=== PATIENT | male | born 1945 | race Caucasian/White ===

== ENCOUNTER 2017-04-26 19:36 | Inpatient (IN) | payer MEDICARE ==
[~2017-04-26] VITALS: Ht 167.6 cm; Wt 74.8 kg
[~2017-04-26 19:36] MED LIST: ALBU6.7H INH; ALBU90AE INH; AMLO5TAB2 PO; ASPI-496 PO; ASPI325T4 PO; ASPI325T80 PO; CARB200C PO; CARV6.2512 PO; CHOL20002 PO; CITA10TA4 PO; CYAN500T2 PO; DIVA125T2 PO; DIVA500T17 PO; DORZOLAMIDE HCL 2% OP; GABA-826 PO; GABA300C10 PO; HYDR-3138 PO; HYDR25TA6 PO; IPRA15SP2 INH; Ipratropium Bromide INH; KETOTIFEN OP; LATA2.5D3 EACHEYE; LATANOPROST; LEVE500T8 PO; MAGN420T PO; MECL-76 PO; MIRT15TA4 PO; OMEP-110 PO; OMEP20CA14 PO; ROSU10TA PO; ROSU20TA PO; TIMO5SOL6 OP; TIOT18CA INH; TRAZ100T15 PO; [UNRECOGNIZED DRUG - OTHER]; lidocaine
[2017-04-26] MEDS ORDERED: SODIUM CHLORIDE FLUSH 10ML SYR IVF ONE (20:00)
[2017-04-26 20:41] LABS: IS PT STATUS REG ER OR PRE ER? YES
[2017-04-26] MEDS ORDERED: ASPIRIN 81 MG TABLET CHEW PO ONE (21:00)
[2017-04-26] MEDS ORDERED: ASPIRIN 81 MG TABLET CHEW ONE (21:14)
[2017-04-26] MEDS ORDERED: NITROGLYCERIN SINGLE TAB 0.4 MG SL PRN (21:30)
[2017-04-26] MEDS ORDERED: HYDROmorphone 2 MG/ML, 1ML IVPush PRN (21:30)
[2017-04-26] MEDS ORDERED: HYDROmorphone 1 MG/ML, 1ML ONE (22:18)
[2017-04-26] MEDS ORDERED: NITROGLYCERIN 0.4 MG/SPRAY SL PRN (23:30)
[2017-04-26] MEDS: NITROGLYCERIN 0.4 MG BOTTLE (25 TABS) SL PRN ×2 (23:42→23:48)
[2017-04-26] MEDS ORDERED: LORazepam 2 MG/ML, 1ML ONE (23:53)
[2017-04-26] MEDS ORDERED: DIPHENHYDRAMINE 50 MG/ML, 1ML ONE (23:57)
[2017-04-27] MEDS ORDERED: LABETALOL 5MG/ML, 20ML ONE (00:05)
[2017-04-27] MEDS ORDERED: LABETALOL 5MG/ML, 20ML IVPush ONE (00:30)
[2017-04-27 00:40] LABS: ASPARTATE AMINO TRANSFERASE 23 U/L (15-37); BLOOD UREA NITROGEN 21 mg/dL (7-18)
[2017-04-27 00:44] LABS: IS PT STATUS REG ER OR PRE ER? NO
[2017-04-27] MEDS ORDERED: POLYETHYLENE GLYCOL 17 GM PACKET PO PRN (01:00)
[2017-04-27] MEDS ORDERED: LABETALOL 5MG/ML, 20ML IVPush PRN (01:00)
[2017-04-27] MEDS ORDERED: ONDANSETRON 2MG/ML, 2ML IVPush PRN (01:00)
[2017-04-27 01:26] VITALS: BP 160/78
[2017-04-27] MEDS: DIVALPROEX 500 MG TAB.ER.24H PO SCH ×2 (01:27→21:21)
[2017-04-27] MEDS: TRAZODONE 100MG TABLET PO SCH ×2 (01:27→21:22)
[2017-04-27] MEDS: HYDROmorphone 2 MG/ML, 1ML IVPush PRN ×3 (01:28→03:17)
[2017-04-27] MEDS ORDERED: ALBUTEROL SULFATE 2.5 MG/3 ML NPPB PRN (03:30)
[2017-04-27] MEDS: LORazepam 2 MG/ML, 1ML IVPush PRN ×2 (04:30→04:38)
[2017-04-27] MEDS ORDERED: ASPIRIN 325 MG TABLET PO SCH (06:00)
[2017-04-27 06:21] VITALS: BP 111/67
[2017-04-27] MEDS ORDERED: ALBUTEROL/IPRATROPIUM 2.5MG/0.5MG, 3 ML ONE (06:42)
[2017-04-27 07:20] LABS: IS PT STATUS REG ER OR PRE ER? NO
[2017-04-27] MEDS: ALBUTEROL SULFATE 2.5 MG/3 ML NPPB SCH ×4 (07:25→18:52)
[2017-04-27 07:47] VITALS: BP 137/70
[2017-04-27] MEDS: CARVEDILOL 6.25 MG TABLET PO SCH ×2 (08:44→21:21)
[2017-04-27] MEDS: MAGNESIUM OXIDE 400 MG TABLET PO SCH (08:45)
[2017-04-27] MEDS: CITALOPRAM 10 MG TABLET PO SCH (08:45)
[2017-04-27] MEDS: OMEPRAZOLE 20 MG CAPSULE.DR PO SCH (08:45)
[2017-04-27] MEDS: CARBAMAZEPINE 200 MG TABLET PO SCH ×2 (08:45→21:24)
[2017-04-27] MEDS: GABAPENTIN 300 MG CAPSULE PO SCH ×2 (08:45→21:23)
[2017-04-27] MEDS: CYANOCOBALAMIN 1,000 MCG TABLET PO SCH (08:45)
[2017-04-27] MEDS: LEVETIRACETAM 500 MG TABLET PO SCH ×2 (08:45→21:22)
[2017-04-27] MEDS: AMLODIPINE 5 MG TABLET PO SCH (08:45)
[2017-04-27] MEDS: CHOLECALCIFEROL 1,000 UNIT TABLET PO SCH (08:45)
[2017-04-27] MEDS ORDERED: IPRATROPIUM 0.5 MG/2.5 ML INHA NPPB SCH (09:00)
[2017-04-27] MEDS: KETOROLAC OPHTH 0.5%, 5ML EACHEYE SCH ×2 (10:14→21:17)
[2017-04-27] MEDS: TIMOLOL OPHTH 0.5%, 5ML EACHEYE SCH ×2 (10:14→21:18)
[2017-04-27] MEDS ORDERED: SODIUM CHLORIDE 0.9% 1,000 ML IV SCH (11:00)
[2017-04-27] MEDS: DORZOLAMIDE OPHTH 2%, 10ML OP SCH ×2 (11:14→21:00)
[2017-04-27] MEDS: SODIUM CHLORIDE 0.9% 1,000 ML IV SCH ×4 (11:24→23:39)
[2017-04-27] MEDS ORDERED: MIDAZOLAM 1 MG/ML, 5ML ONE (13:25)
[2017-04-27] MEDS ORDERED: LIDOCAINE 2%, 20ML ONE (13:26)
[2017-04-27] MEDS ORDERED: HEPARIN 1,000 UNITS/ML, 10ML ONE (13:26)
[2017-04-27] MEDS ORDERED: FENTANYL PF 100 MCG/2ML ONE (13:26)
[2017-04-27] MEDS ORDERED: VERAPAMIL 2.5 MG/ML, 2ML ONE (13:26)
[2017-04-27] MEDS ORDERED: BIVALIRUDIN 250 MG ONE (13:26)
[2017-04-27 13:35] VITALS: BP 114/68
[2017-04-27 19:57] VITALS: BP 107/68
[2017-04-27] MEDS ORDERED: LATANOPROST OPHTH 0.005%, 2.5ML EACHEYE SCH (21:00)
[2017-04-27] MEDS ORDERED: ATORVASTATIN 20 MG TABLET PO SCH (21:00)
[2017-04-27] MEDS ORDERED: MIRTAZAPINE 15 MG TABLET PO SCH (21:00)
[2017-04-27 21:17] VITALS: BP 138/73
[2017-04-28] MEDS: SODIUM CHLORIDE 0.9% 1,000 ML IV SCH (00:20)
[2017-04-28 01:24] VITALS: BP 129/65
[2017-04-28] MEDS ORDERED: ASPIRIN 81 MG TABLET CHEW PO SCH (06:00)
[2017-04-28] MEDS: HYDROmorphone 2 MG/ML, 1ML IVPush PRN (06:02)
[2017-04-28 06:43] LABS: BLOOD UREA NITROGEN 22 mg/dL (7-18)
[2017-04-28 06:49] VITALS: BP 129/70
[2017-04-28] MEDS: ALBUTEROL SULFATE 2.5 MG/3 ML NPPB SCH ×2 (07:05→10:30)
[2017-04-28] MEDS: KETOROLAC OPHTH 0.5%, 5ML EACHEYE SCH (08:15)
[2017-04-28] MEDS: CITALOPRAM 10 MG TABLET PO SCH (08:16)
[2017-04-28] MEDS: GABAPENTIN 300 MG CAPSULE PO SCH (08:16)
[2017-04-28] MEDS: LEVETIRACETAM 500 MG TABLET PO SCH (08:16)
[2017-04-28] MEDS: TIMOLOL OPHTH 0.5%, 5ML EACHEYE SCH (08:16)
[2017-04-28] MEDS: CHOLECALCIFEROL 1,000 UNIT TABLET PO SCH (08:16)
[2017-04-28] MEDS: OMEPRAZOLE 20 MG CAPSULE.DR PO SCH (08:16)
[2017-04-28] MEDS: CYANOCOBALAMIN 1,000 MCG TABLET PO SCH (08:16)
[2017-04-28] MEDS: CARBAMAZEPINE 200 MG TABLET PO SCH (08:16)
[2017-04-28] MEDS: MAGNESIUM OXIDE 400 MG TABLET PO SCH (08:16)
[2017-04-28] MEDS: DORZOLAMIDE OPHTH 2%, 10ML OP SCH (08:17)
[2017-04-28] MEDS: CARVEDILOL 6.25 MG TABLET PO SCH (08:17)
[2017-04-28] MEDS: AMLODIPINE 5 MG TABLET PO SCH (08:18)
[2017-04-28 12:28] LABS: IS PT STATUS REG ER OR PRE ER? NO
== END 2017-04-28 11:50 | disposition home or self-care (01) | DRG 280 ==
LOC: ED 20:23 → EDIP 21:37 → 5SO 22:30 → DCLOUNGE 04-28 10:43
PROVIDERS: ADMIT Internal Medicine; ATTEND Internal Medicine
PROC: 4A023N7 Measurement of Cardiac Sampling and Pressure, Left Heart, Percutaneous Approach (ICD-10-PCS; principal; 2017-04-27)
PROC: B2111ZZ Fluoroscopy of Multiple Coronary Arteries using Low Osmolar Contrast (ICD-10-PCS; 2017-04-27)
PROC: B2151ZZ Fluoroscopy of Left Heart using Low Osmolar Contrast (ICD-10-PCS; 2017-04-27)
DX: I21.4 Non-ST elevation (NSTEMI) myocardial infarction (principal); N17.0 Acute kidney failure with tubular necrosis; F33.9 Major depressive disorder, recurrent, unspecified; E78.5 Hyperlipidemia, unspecified; F10.21 Alcohol dependence, in remission; F44.5 Conversion disorder with seizures or convulsions; G62.9 Polyneuropathy, unspecified; G93.89 Other specified disorders of brain; I13.10 Hypertensive heart and chronic kidney disease without heart failure, with stage 1 through stage 4 chronic kidney disease, or unspecified chronic kidney disease; I25.10 Atherosclerotic heart disease of native coronary artery without angina pectoris; I34.0 Nonrheumatic mitral (valve) insufficiency; I73.9 Peripheral vascular disease, unspecified; J44.9 Chronic obstructive pulmonary disease, unspecified; M10.9 Gout, unspecified; N18.3 Chronic kidney disease, stage 3 (moderate); F12.90 Cannabis use, unspecified, uncomplicated; H40.9 Unspecified glaucoma; F17.210 Nicotine dependence, cigarettes, uncomplicated; I25.2 Old myocardial infarction; Z82.49 Family history of ischemic heart disease and other diseases of the circulatory system; Z91.81 History of falling; Z88.4 Allergy status to anesthetic agent; Z88.8 Allergy status to other drugs, medicaments and biological substances; Z87.820 Personal history of traumatic brain injury
CPT/HCPCS: 36415; 70450; 71010; 80047; 80048; 80053; 80061; 80157; 82040; 82542; 82962; 83735; 83880; 84100; 84484; 85025; 85610; 85730; 93005; 93306; 93458; 94640; 95819; 96374; 99156; C1760; C1894; J0583; J1170; J1644; J2250; J3010; J3490; J7613; J2060; J7030; Q9967

== ENCOUNTER 2017-05-02 09:35 | Inpatient (IN) | payer MEDICARE, OTHER ==
[~2017-05-02] VITALS: Ht 167.6 cm; Wt 82.6 kg
[2017-05-02] MEDS ORDERED: MORPHINE SULFATE 4 MG/ML, 1ML IVPush PRN (10:00)
[2017-05-02] MEDS ORDERED: SODIUM CHLORIDE FLUSH 10ML SYR IVF ONE (10:00)
[2017-05-02] MEDS ORDERED: SODIUM CHLORIDE 0.9% 1,000ML IVBOLUS ONE (10:00)
[2017-05-02] MEDS ORDERED: CEFTRIAXONE PMX 1GM/50ML 50 ML IVPB ONE (10:00)
[2017-05-02] MEDS ORDERED: ACETAMINOPHEN 500 MG TABLET PO ONE (10:00)
[2017-05-02] MEDS ORDERED: ONDANSETRON 2MG/ML, 2ML IVPush ONE (10:00)
[2017-05-02] MEDS ORDERED: ACETAMINOPHEN 325 MG TABLET PO ONE (10:00)
[2017-05-02] MEDS ORDERED: CEFTRIAXONE PMX 2GM/50ML 50 ML IV STA (10:24)
[2017-05-02] MEDS ORDERED: LORazepam 2 MG/ML, 1ML ONE (10:29)
[2017-05-02] MEDS ORDERED: ACETAMINOPHEN 500 MG TABLET ONE (10:30)
[2017-05-02] MEDS ORDERED: LORazepam 2 MG/ML, 1ML IM PRN (10:30)
[2017-05-02 10:54] LABS: HEMATOCRIT 35.3 % (39.2-51.8); HEMOGLOBIN 11.4 g/dL (13.7-18.0)
[2017-05-02 11:06] LABS: ASPARTATE AMINO TRANSFERASE 10 U/L (15-37); BLOOD UREA NITROGEN 26 mg/dL (7-18)
[2017-05-02 11:08] LABS: IS PT STATUS REG ER OR PRE ER? YES
[2017-05-02] MEDS ORDERED: IBUPROFEN 200 MG TABLET ONE (11:38)
[2017-05-02] MEDS ORDERED: LIDOCAINE 1%, 20ML ONE (11:53)
[2017-05-02] MEDS ORDERED: IBUPROFEN 200 MG TABLET PO ONE (12:00)
[2017-05-02] MEDS ORDERED: CEFTRIAXONE PMX 2GM/50ML 50 ML ONE (14:20)
[2017-05-02 14:59] VITALS: BP 113/70
[2017-05-02] MEDS ORDERED: NALOXONE 0.4 MG/ML, 1ML ONE (15:15)
[2017-05-02] MEDS ORDERED: NALOXONE 0.4 MG/ML, 1ML IVPush ONE (15:30)
[2017-05-02] MEDS ORDERED: DOCUSATE 100 MG CAPSULE PO PRN (16:00)
[2017-05-02] MEDS ORDERED: CEFTRIAXONE PMX 1GM/50ML 50 ML IV SCH (16:00)
[2017-05-02] MEDS ORDERED: BISACODYL 10 MG SUPP PR PRN (16:00)
[2017-05-02] MEDS ORDERED: POLYETHYLENE GLYCOL 17 GM PACKET PO PRN (16:00)
[2017-05-02 16:59] LABS: TOTAL IRON BINDING CAPACITY 231 mcg/dL (250-450)
[2017-05-02] MEDS: SODIUM CHLORIDE 0.9% 1,000 ML IV SCH (17:01)
[2017-05-02] MEDS: DOXYCYCLINE 100 MG in DEXTROSE 5% 250 ML IV SCH (17:01)
[2017-05-02] MEDS: ENOXAPARIN 40 MG/0.4 ML SQ SCH (17:06)
[2017-05-02 17:07] LABS: IS PT STATUS REG ER OR PRE ER? NO
[2017-05-02] MEDS ORDERED: MAGNESIUM SULFATE PMX 4GM/100M 100 ML IV ONE (17:30)
[2017-05-02] MEDS ORDERED: POTASSIUM PHOSPHATE 44 MEQ in SODIUM CHLORIDE 0.9% 500 ML IV ONE (17:30)
[2017-05-02] MEDS ORDERED: ALBUTEROL SULFATE 2.5 MG/3 ML NPPB PRN (18:00)
[2017-05-02 19:15] VITALS: BP 143/75
[2017-05-02 22:17] LABS: IS PT STATUS REG ER OR PRE ER? NO
[2017-05-03 02:20] VITALS: BP 133/75
[2017-05-03] MEDS: DOXYCYCLINE 100 MG in DEXTROSE 5% 250 ML IV SCH (04:16)
[2017-05-03 06:49] LABS: ASPARTATE AMINO TRANSFERASE 8 U/L (15-37); BLOOD UREA NITROGEN 29 mg/dL (7-18)
[2017-05-03 07:09] LABS: HEMATOCRIT 30.5 % (39.2-51.8); HEMOGLOBIN 9.9 g/dL (13.7-18.0); WHITE BLOOD COUNT 12.7 x10^3/uL (3.4-10)
[2017-05-03 07:10] LABS: DIFF TOTAL CELLS COUNTED 100 CELL DIFF
[2017-05-03 07:11] LABS: VERIFY COUNTS? YES
[2017-05-03 07:12] LABS: POLYCHROMASIA 1+
[2017-05-03 08:32] VITALS: BP 159/83
[2017-05-03] MEDS: SODIUM CHLORIDE 0.9% 1,000 ML IV SCH (08:34)
[2017-05-03] MEDS: CARBAMAZEPINE 100 MG TAB.CHEW PO SCH ×2 (10:21→21:00)
[2017-05-03] MEDS: CITALOPRAM 10 MG TABLET PO SCH (10:21)
[2017-05-03] MEDS: GABAPENTIN 300 MG CAPSULE PO SCH ×2 (10:21→21:11)
[2017-05-03] MEDS: LEVETIRACETAM 500 MG TABLET PO SCH ×2 (10:22→21:11)
[2017-05-03] MEDS: CARVEDILOL 6.25 MG TABLET PO SCH ×2 (10:22→21:12)
[2017-05-03] MEDS: ASPIRIN 81 MG TABLET EC PO SCH (10:22)
[2017-05-03] MEDS: OMEPRAZOLE 20 MG CAPSULE.DR PO SCH (10:23)
[2017-05-03] MEDS: MAGNESIUM OXIDE 400 MG TABLET PO SCH (10:23)
[2017-05-03] MEDS: CYANOCOBALAMIN 1,000 MCG TABLET PO SCH (10:24)
[2017-05-03] MEDS: CHOLECALCIFEROL 1,000 UNIT TABLET PO SCH (10:24)
[2017-05-03] MEDS: TIOTROPIUM BROMIDE 2.5 MCG INH SCH (10:24)
[2017-05-03] MEDS: KETOTIFEN OP SCH ×2 (10:24→21:00)
[2017-05-03] MEDS: TIMOLOL OPHTH 0.5%, 5ML OP SCH (10:25)
[2017-05-03] MEDS: DORZOLAMIDE OPHTH 2%, 10ML OP SCH ×2 (10:25→21:10)
[2017-05-03] MEDS ORDERED: IPRATROPIUM BROMIDE 17 MCG INH SCH (11:00)
[2017-05-03 11:44] VITALS: BP 140/73
[2017-05-03] MEDS: HYDROcodone/APAP 5/325 TABLET PO PRN (11:44)
[2017-05-03 13:08] VITALS: BP 139/76
[2017-05-03] MEDS ORDERED: PHARMACY MAY ADJ FOR RENAL FX MC PRN (13:30)
[2017-05-03] MEDS ORDERED: PHARMACOKINETIC MONITORING MC PRN (13:30)
[2017-05-03] MEDS ORDERED: VANCOMYCIN PER PHARMACY MC PRN (13:30)
[2017-05-03] MEDS: PIPERACILLIN/TAZO/PMX 4.5GM 100 ML IV SCH ×2 (14:05→21:11)
[2017-05-03] MEDS: VANCOMYCIN 1,400 MG in SODIUM CHLORIDE 0.9% 250 ML IV SCH (14:57)
[2017-05-03] MEDS ORDERED: IPRATROPIUM 0.5 MG/2.5 ML INHA NPPB SCH (16:00)
[2017-05-03] MEDS: ENOXAPARIN 40 MG/0.4 ML SQ SCH (16:13)
[2017-05-03 19:26] VITALS: BP 140/69
[2017-05-03] MEDS: LATANOPROST OPHTH 0.005%, 2.5ML EACHEYE SCH (21:10)
[2017-05-03] MEDS: TRAZODONE 100MG TABLET PO SCH (21:11)
[2017-05-03] MEDS: DIVALPROEX 500 MG TAB.ER.24H PO SCH (21:11)
[2017-05-03] MEDS: MIRTAZAPINE 15 MG TABLET PO SCH (21:11)
[2017-05-03] MEDS: ATORVASTATIN 20 MG TABLET PO SCH (21:11)
[2017-05-04 01:12] VITALS: BP 130/63
[2017-05-04] MEDS: PIPERACILLIN/TAZO/PMX 4.5GM 100 ML IV SCH ×3 (05:14→16:10)
[2017-05-04 05:39] LABS: HEMATOCRIT 28.9 % (39.2-51.8); HEMOGLOBIN 9.5 g/dL (13.7-18.0); WHITE BLOOD COUNT 11.7 x10^3/uL (3.4-10)
[2017-05-04 05:58] LABS: ASPARTATE AMINO TRANSFERASE 6 U/L (15-37); BLOOD UREA NITROGEN 28 mg/dL (7-18)
[2017-05-04 07:28] VITALS: BP 129/60
[2017-05-04] MEDS: TIMOLOL OPHTH 0.5%, 5ML OP SCH (08:51)
[2017-05-04] MEDS: DORZOLAMIDE OPHTH 2%, 10ML OP SCH ×2 (08:52→20:11)
[2017-05-04] MEDS: CITALOPRAM 10 MG TABLET PO SCH (08:52)
[2017-05-04] MEDS: LEVETIRACETAM 500 MG TABLET PO SCH ×2 (08:53→20:12)
[2017-05-04] MEDS: CARVEDILOL 6.25 MG TABLET PO SCH ×2 (08:53→20:12)
[2017-05-04] MEDS: ASPIRIN 81 MG TABLET EC PO SCH (08:54)
[2017-05-04] MEDS: AMLODIPINE 5 MG TABLET PO SCH (08:55)
[2017-05-04] MEDS: GABAPENTIN 300 MG CAPSULE PO SCH ×2 (08:55→20:12)
[2017-05-04] MEDS: OMEPRAZOLE 20 MG CAPSULE.DR PO SCH (08:56)
[2017-05-04] MEDS: CHOLECALCIFEROL 1,000 UNIT TABLET PO SCH (08:58)
[2017-05-04] MEDS: MAGNESIUM OXIDE 400 MG TABLET PO SCH (08:58)
[2017-05-04] MEDS: CYANOCOBALAMIN 1,000 MCG TABLET PO SCH (08:59)
[2017-05-04] MEDS: TIOTROPIUM BROMIDE 2.5 MCG INH SCH (09:00)
[2017-05-04] MEDS: KETOTIFEN OP SCH ×2 (09:00→21:00)
[2017-05-04] MEDS: CARBAMAZEPINE 100 MG TAB.CHEW PO SCH ×2 (09:00→21:00)
[2017-05-04] MEDS: HYDROcodone/APAP 5/325 TABLET PO PRN (09:14)
[2017-05-04 13:56] VITALS: BP 143/85
[2017-05-04] MEDS: ENOXAPARIN 40 MG/0.4 ML SQ SCH (16:00)
[2017-05-04 19:54] VITALS: BP 129/72
[2017-05-04] MEDS: DIVALPROEX 500 MG TAB.ER.24H PO SCH (20:11)
[2017-05-04] MEDS: LATANOPROST OPHTH 0.005%, 2.5ML EACHEYE SCH (20:11)
[2017-05-04] MEDS: TRAZODONE 100MG TABLET PO SCH (20:12)
[2017-05-04] MEDS: ATORVASTATIN 20 MG TABLET PO SCH (20:12)
[2017-05-04] MEDS: MIRTAZAPINE 15 MG TABLET PO SCH (20:12)
[2017-05-04] MEDS: PIPERACILLIN/TAZO/PMX 3.375GM 50 ML IV SCH (22:37)
[2017-05-05 01:03] VITALS: BP 137/77
[2017-05-05] MEDS: VANCOMYCIN 1,400 MG in SODIUM CHLORIDE 0.9% 250 ML IV SCH (02:40)
[2017-05-05] MEDS: PIPERACILLIN/TAZO/PMX 3.375GM 50 ML IV SCH ×3 (04:46→16:00)
[2017-05-05 08:08] VITALS: BP 167/83
[2017-05-05] MEDS: LEVETIRACETAM 500 MG TABLET PO SCH (08:50)
[2017-05-05] MEDS: ASPIRIN 81 MG TABLET EC PO SCH (08:50)
[2017-05-05] MEDS: CARVEDILOL 6.25 MG TABLET PO SCH (08:50)
[2017-05-05] MEDS: MAGNESIUM OXIDE 400 MG TABLET PO SCH (08:50)
[2017-05-05] MEDS: AMLODIPINE 5 MG TABLET PO SCH (08:51)
[2017-05-05] MEDS: CYANOCOBALAMIN 1,000 MCG TABLET PO SCH (08:51)
[2017-05-05] MEDS: OMEPRAZOLE 20 MG CAPSULE.DR PO SCH (08:51)
[2017-05-05] MEDS: GABAPENTIN 300 MG CAPSULE PO SCH (08:51)
[2017-05-05] MEDS: DORZOLAMIDE OPHTH 2%, 10ML OP SCH (08:52)
[2017-05-05] MEDS: CITALOPRAM 10 MG TABLET PO SCH (08:52)
[2017-05-05] MEDS: CHOLECALCIFEROL 1,000 UNIT TABLET PO SCH (08:52)
[2017-05-05] MEDS: TIMOLOL OPHTH 0.5%, 5ML OP SCH (08:53)
[2017-05-05] MEDS: TIOTROPIUM BROMIDE 2.5 MCG INH SCH (09:00)
[2017-05-05] MEDS: CARBAMAZEPINE 100 MG TAB.CHEW PO SCH (09:00)
[2017-05-05] MEDS: KETOTIFEN OP SCH (09:00)
[2017-05-05 12:00] LABS: HEMOGLOBIN 10.4 g/dL (13.7-18.0); WHITE BLOOD COUNT 7.7 x10^3/uL (3.4-10)
[2017-05-05 12:02] LABS: BLOOD UREA NITROGEN 24 mg/dL (7-18)
[2017-05-05] MEDS ORDERED: CEFD300C37 PO (12:45)
[2017-05-05] MEDS ORDERED: METR500T PO (12:45)
[2017-05-05] MEDS: ENOXAPARIN 40 MG/0.4 ML SQ SCH (16:00)
== END 2017-05-05 15:40 | disposition home or self-care (01) | DRG 871 ==
LOC: ED 12:14 → EDIP 12:47 → 5SO 14:50 → 3NE 05-03 19:38 → DCLOUNGE 05-05 15:19
PROVIDERS: ADMIT Internal Medicine; ATTEND Internal Medicine
PROC: 02HV33Z Insertion of Infusion Device into Superior Vena Cava, Percutaneous Approach (ICD-10-PCS; principal; 2017-05-02)
PROC: B548ZZA Ultrasonography of Superior Vena Cava, Guidance (ICD-10-PCS; 2017-05-02)
DX: A41.9 Sepsis, unspecified organism (principal); E43 Unspecified severe protein-calorie malnutrition; I21.4 Non-ST elevation (NSTEMI) myocardial infarction; J18.1 Lobar pneumonia, unspecified organism; J15.9 Unspecified bacterial pneumonia; N18.3 Chronic kidney disease, stage 3 (moderate); G62.9 Polyneuropathy, unspecified; R56.9 Unspecified convulsions; J44.0 Chronic obstructive pulmonary disease with (acute) lower respiratory infection; D64.9 Anemia, unspecified; G40.909 Epilepsy, unspecified, not intractable, without status epilepticus; E78.5 Hyperlipidemia, unspecified; I12.9 Hypertensive chronic kidney disease with stage 1 through stage 4 chronic kidney disease, or unspecified chronic kidney disease; I25.10 Atherosclerotic heart disease of native coronary artery without angina pectoris; M10.9 Gout, unspecified; F32.9 Major depressive disorder, single episode, unspecified; R09.02 Hypoxemia; I69.30 Unspecified sequelae of cerebral infarction; Z82.49 Family history of ischemic heart disease and other diseases of the circulatory system; Z87.820 Personal history of traumatic brain injury; Z88.8 Allergy status to other drugs, medicaments and biological substances; Z79.82 Long term (current) use of aspirin; Z79.51 Long term (current) use of inhaled steroids; Z68.29 Body mass index [BMI] 29.0-29.9, adult; Z86.73 Personal history of transient ischemic attack (TIA), and cerebral infarction without residual deficits
CPT/HCPCS: 36415; 36569; 71010; 76937; 77001; 80048; 80053; 81003; 83540; 83550; 83605; 83735; 84100; 84145; 84443; 84484; 85025; 87040; 87070; 87205; 93005; 96361; 96365; 96372; J0696; J1650; J2310; J2543; J3370; J7060; C1751; J2060; J3475; J7030; J7040; J7050

== ENCOUNTER 2017-05-14 15:27 | Inpatient (IN) | payer MEDICARE, OTHER ==
[~2017-05-14] VITALS: Ht 177.8 cm; Wt 82.2 kg
[~2017-05-14 15:27] MED LIST changes: +CEFD300C37 PO; +METR500T PO
[2017-05-14] MEDS ORDERED: SODIUM CHLORIDE FLUSH 10ML SYR IVF ONE ×2 (16:00→19:00)
[2017-05-14 16:12] LABS: HEMATOCRIT 33.4 % (39.2-51.8); HEMOGLOBIN 10.8 g/dL (13.7-18.0); WHITE BLOOD COUNT 4.3 x10^3/uL (3.4-10)
[2017-05-14 16:25] LABS: ASPARTATE AMINO TRANSFERASE 12 U/L (15-37); BLOOD UREA NITROGEN 15 mg/dL (7-18)
[2017-05-14 16:29] LABS: IS PT STATUS REG ER OR PRE ER? YES; VALPROIC ACID 67.5 mcg/mL (50.0-100.0)
[2017-05-14] MEDS ORDERED: HYDROcodone/APAP 5/325 TABLET PO PRN (19:00)
[2017-05-14] MEDS ORDERED: ACETAMINOPHEN 325 MG TABLET PO PRN (19:00)
[2017-05-14] MEDS ORDERED: LABETALOL 5MG/ML, 20ML IVPush PRN (19:00)
[2017-05-14] MEDS ORDERED: ONDANSETRON ODT 4 MG PO PRN (19:00)
[2017-05-14] MEDS: CARBAMAZEPINE 100 MG TAB.CHEW PO SCH (20:48)
[2017-05-14] MEDS: LEVETIRACETAM 500 MG TABLET PO SCH (20:48)
[2017-05-14] MEDS: GABAPENTIN 300 MG CAPSULE PO SCH (20:48)
[2017-05-14] MEDS: OMEPRAZOLE 20 MG CAPSULE.DR PO SCH (20:48)
[2017-05-14] MEDS: CARVEDILOL 6.25 MG TABLET PO SCH (20:49)
[2017-05-14] MEDS: KETOTIFEN OP SCH (20:52)
[2017-05-14] MEDS: DORZOLAMIDE OPHTH 2%, 10ML OP SCH (20:53)
[2017-05-14 20:55] VITALS: BP 156/81
[2017-05-14] MEDS ORDERED: LORazepam 2 MG/ML, 1ML IVPush PRN (21:00)
[2017-05-14] MEDS ORDERED: LATANOPROST OPHTH 0.005%, 2.5ML EACHEYE SCH (21:00)
[2017-05-14] MEDS ORDERED: TRAZODONE 100MG TABLET PO SCH (21:00)
[2017-05-14] MEDS ORDERED: MIRTAZAPINE 15 MG TABLET PO SCH (21:00)
[2017-05-14] MEDS ORDERED: ATORVASTATIN 20 MG TABLET PO SCH (21:00)
[2017-05-14] MEDS ORDERED: DIVALPROEX 500 MG TAB.ER.24H PO SCH (21:00)
[2017-05-14 22:20] LABS: IS PT STATUS REG ER OR PRE ER? NO
[2017-05-14] MEDS ORDERED: ALBUTEROL/IPRATROPIUM 2.5MG/0.5MG, 3 ML NPPB PRN (23:00)
[2017-05-15 00:55] VITALS: BP 105/57
[2017-05-15 03:24] LABS: HEMOGLOBIN 11.1 g/dL (13.7-18.0); WHITE BLOOD COUNT 3.9 x10^3/uL (3.4-10)
[2017-05-15 03:36] LABS: BLOOD UREA NITROGEN 15 mg/dL (7-18)
[2017-05-15 03:47] LABS: IS PT STATUS REG ER OR PRE ER? NO
[2017-05-15 06:35] VITALS: BP 122/55
[2017-05-15] MEDS: KETOTIFEN OP SCH (08:35)
[2017-05-15] MEDS: CARVEDILOL 6.25 MG TABLET PO SCH (08:49)
[2017-05-15] MEDS: GABAPENTIN 300 MG CAPSULE PO SCH (08:49)
[2017-05-15] MEDS: LEVETIRACETAM 500 MG TABLET PO SCH (08:49)
[2017-05-15] MEDS: CARBAMAZEPINE 100 MG TAB.CHEW PO SCH (08:50)
[2017-05-15] MEDS: OMEPRAZOLE 20 MG CAPSULE.DR PO SCH (08:50)
[2017-05-15] MEDS ORDERED: CITALOPRAM 10 MG TABLET PO SCH (09:00)
[2017-05-15] MEDS ORDERED: AMLODIPINE 5 MG TABLET PO SCH (09:00)
[2017-05-15] MEDS ORDERED: ASPIRIN 81 MG TABLET EC PO SCH (09:00)
[2017-05-15] MEDS ORDERED: CHOLECALCIFEROL 1,000 UNIT TABLET PO SCH (09:00)
[2017-05-15] MEDS ORDERED: MAGNESIUM OXIDE 400 MG TABLET PO SCH (09:00)
[2017-05-15] MEDS ORDERED: CYANOCOBALAMIN 1,000 MCG TABLET PO SCH (09:00)
[2017-05-15] MEDS ORDERED: TIMOLOL OPHTH 0.5%, 5ML OP SCH (09:00)
[2017-05-15] MEDS: DORZOLAMIDE OPHTH 2%, 10ML OP SCH (09:00)
[2017-05-15] MEDS: IPRATROPIUM 0.5 MG/2.5 ML INHA NPPB SCH ×2 (09:49→16:05)
== END 2017-05-15 11:58 | disposition home or self-care (01) | DRG 86 ==
LOC: ED 16:55 → EDIP 17:26 → 4WST 19:27
PROVIDERS: ADMIT Internal Medicine; ATTEND Internal Medicine
DX: S06.9X1A Unspecified intracranial injury with loss of consciousness of 30 minutes or less, initial encounter (principal); E87.1 Hypo-osmolality and hyponatremia; G62.9 Polyneuropathy, unspecified; J44.9 Chronic obstructive pulmonary disease, unspecified; G40.909 Epilepsy, unspecified, not intractable, without status epilepticus; W18.39XA Other fall on same level, initial encounter; W01.0XXA Fall on same level from slipping, tripping and stumbling without subsequent striking against object, initial encounter; N18.3 Chronic kidney disease, stage 3 (moderate); E16.2 Hypoglycemia, unspecified; I12.9 Hypertensive chronic kidney disease with stage 1 through stage 4 chronic kidney disease, or unspecified chronic kidney disease; E78.5 Hyperlipidemia, unspecified; F10.20 Alcohol dependence, uncomplicated; M10.9 Gout, unspecified; F12.90 Cannabis use, unspecified, uncomplicated; F32.9 Major depressive disorder, single episode, unspecified; I25.10 Atherosclerotic heart disease of native coronary artery without angina pectoris; I25.2 Old myocardial infarction; Y93.89 Activity, other specified; Y99.8 Other external cause status; Y92.098 Other place in other non-institutional residence as the place of occurrence of the external cause; Z72.0 Tobacco use; Z87.01 Personal history of pneumonia (recurrent); Z88.8 Allergy status to other drugs, medicaments and biological substances; Z87.820 Personal history of traumatic brain injury
CPT/HCPCS: 36415; 70450; 71010; 72125; 80048; 80053; 80164; 80307; 82542; 83735; 84100; 84484; 85025; 85610; 85730; 93005; 97161; 99285; J7644

== ENCOUNTER 2017-08-08 22:19 | Inpatient (IN) | payer MEDICARE, OTHER ==
[~2017-08-08] VITALS: Ht 167.6 cm; Wt 87.2 kg
[~2017-08-08 22:19] MED LIST changes: +ASPI325T17 PO; -ASPI325T4 PO; -HYDR-3138 PO; +HYDR-3237 PO; +TIMO5SOL11 OP; -TIMO5SOL6 OP
[2017-08-08] MEDS ORDERED: ASPIRIN 81 MG TABLET CHEW ONE (22:31)
[2017-08-08] MEDS ORDERED: ONDANSETRON 2MG/ML, 2ML ONE (22:39)
[2017-08-08] MEDS ORDERED: morphine SULFATE 10 MG/ML, 1ML ONE (22:39)
[2017-08-08] MEDS ORDERED: NITROGLYCERIN SINGLE TAB 0.4 MG SL ONE (22:39)
[2017-08-08] MEDS: MORPHINE SULFATE 4 MG/ML, 1ML IVPush PRN ×2 (22:45→23:42)
[2017-08-08 23:00] LABS: HEMATOCRIT 40.1 % (39.2-51.8); HEMOGLOBIN 13.1 g/dL (13.7-18.0); WHITE BLOOD COUNT 5.4 x10^3/uL (3.4-10)
[2017-08-08] MEDS ORDERED: ONDANSETRON 2MG/ML, 2ML IVPush ONE (23:00)
[2017-08-08] MEDS ORDERED: LABETALOL 5MG/ML, 20ML IVPush ONE (23:00)
[2017-08-08] MEDS ORDERED: NITROGLYCERIN SINGLE TAB 0.4 MG SL PRN (23:00)
[2017-08-08] MEDS ORDERED: ASPIRIN 81 MG TABLET CHEW PO ONE (23:00)
[2017-08-08 23:27] LABS: BLOOD UREA NITROGEN 34 mg/dL (7-18)
[2017-08-09 00:29] VITALS: BP 145/92
[2017-08-09] MEDS ORDERED: morphine SULFATE 10 MG/ML, 1ML IVPush PRN (00:30)
[2017-08-09] MEDS ORDERED: HEPARIN 5,000 UNITS/ML, 1ML SQ SCH (00:30)
[2017-08-09] MEDS ORDERED: POLYETHYLENE GLYCOL 17 GM PACKET PO PRN (00:30)
[2017-08-09] MEDS ORDERED: ENALAPRILAT 1.25 MG/ML, 2ML IVPush PRN (00:30)
[2017-08-09] MEDS ORDERED: ACETAMINOPHEN 325 MG TABLET PO PRN (00:30)
[2017-08-09] MEDS ORDERED: hydrALAzine 20 MG/ML, 1ML IVPush PRN (00:30)
[2017-08-09] MEDS ORDERED: BISACODYL 10 MG SUPP PR PRN (00:30)
[2017-08-09] MEDS ORDERED: ONDANSETRON 2MG/ML, 2ML IVPush PRN (00:30)
[2017-08-09 01:10] VITALS: BP 145/92
[2017-08-09] MEDS: CARVEDILOL 6.25 MG TABLET PO SCH ×2 (02:32→06:00)
[2017-08-09] MEDS: ISOSORBIDE MONONITRATE ER 60 MG TABLET PO SCH (02:32)
[2017-08-09] MEDS: DIVALPROEX 500 MG TAB.ER.24H PO SCH ×2 (02:33→21:51)
[2017-08-09] MEDS: SODIUM CHLORIDE 0.9% 1,000 ML IV SCH ×2 (02:36→10:30)
[2017-08-09] MEDS: OXYcodone IR 5MG TABLET PO PRN ×5 (04:11→22:58)
[2017-08-09] MEDS: ASPIRIN 325 MG TABLET EC PO SCH (06:32)
[2017-08-09 08:07] LABS: IS PT STATUS REG ER OR PRE ER? NO
[2017-08-09] MEDS: ALBUTEROL SULFATE 2.5 MG/3 ML NPPB SCH ×4 (08:14→19:40)
[2017-08-09] MEDS: TIOTROPIUM BROMIDE 2.5 MCG INH SCH (09:00)
[2017-08-09] MEDS: DORZOLAMIDE HCL 2% OP SCH ×2 (09:00→21:00)
[2017-08-09] MEDS: TEMPLATE NON-FORMULARY MED. (Timolol Maleate 1 DROP) OP SCH (09:00)
[2017-08-09] MEDS: SENNA/DOCUSATE TABLET PO SCH (09:00)
[2017-08-09] MEDS: LEVETIRACETAM 500 MG TABLET PO SCH ×2 (10:19→21:51)
[2017-08-09] MEDS: CITALOPRAM 10 MG TABLET PO SCH (10:19)
[2017-08-09] MEDS: GABAPENTIN 300 MG CAPSULE PO SCH ×2 (10:19→21:51)
[2017-08-09] MEDS: MAGNESIUM OXIDE 400 MG TABLET PO SCH (10:20)
[2017-08-09] MEDS: CHOLECALCIFEROL 1,000 UNIT TABLET PO SCH (10:20)
[2017-08-09] MEDS: OMEPRAZOLE 20 MG CAPSULE.DR PO SCH (10:20)
[2017-08-09] MEDS: CYANOCOBALAMIN 1,000 MCG TABLET PO SCH (10:20)
[2017-08-09] MEDS: AMLODIPINE 5 MG TABLET PO SCH (10:20)
[2017-08-09 12:29] VITALS: BP 92/57
[2017-08-09 13:39] LABS: BLOOD UREA NITROGEN 35 mg/dL (7-18)
[2017-08-09 13:40] LABS: IS PT STATUS REG ER OR PRE ER? NO
[2017-08-09] MEDS ORDERED: SODIUM CHLORIDE 0.9% 1,000 ML IV SCH (14:30)
[2017-08-09 19:15] VITALS: BP 100/59
[2017-08-09] MEDS: ATORVASTATIN 20 MG TABLET PO SCH (21:50)
[2017-08-09] MEDS: MIRTAZAPINE 15 MG TABLET PO SCH (21:51)
[2017-08-09] MEDS: LATANOPROST OPHTH 0.005%, 2.5ML EACHEYE SCH (23:00)
[2017-08-10 01:00] VITALS: BP 104/62
[2017-08-10] MEDS: ISOSORBIDE MONONITRATE ER 60 MG TABLET PO SCH (03:08)
[2017-08-10] MEDS: ASPIRIN 325 MG TABLET EC PO SCH (04:47)
[2017-08-10 05:24] LABS: HEMATOCRIT 32.6 % (39.2-51.8); HEMOGLOBIN 10.8 g/dL (13.7-18.0)
[2017-08-10 05:38] LABS: ASPARTATE AMINO TRANSFERASE 17 U/L (15-37); BLOOD UREA NITROGEN 41 mg/dL (7-18)
[2017-08-10] MEDS: ALBUTEROL SULFATE 2.5 MG/3 ML NPPB SCH ×4 (06:00→19:10)
[2017-08-10 07:49] VITALS: BP 113/62
[2017-08-10] MEDS: TEMPLATE NON-FORMULARY MED. (Timolol Maleate 1 DROP) OP SCH (08:48)
[2017-08-10] MEDS: DORZOLAMIDE HCL 2% OP SCH ×2 (08:48→21:00)
[2017-08-10] MEDS: TIOTROPIUM BROMIDE 2.5 MCG INH SCH (08:48)
[2017-08-10] MEDS: OMEPRAZOLE 20 MG CAPSULE.DR PO SCH (09:02)
[2017-08-10] MEDS: GABAPENTIN 300 MG CAPSULE PO SCH ×2 (09:02→21:22)
[2017-08-10] MEDS: CITALOPRAM 10 MG TABLET PO SCH (09:02)
[2017-08-10] MEDS: AMLODIPINE 5 MG TABLET PO SCH (09:02)
[2017-08-10] MEDS: MAGNESIUM OXIDE 400 MG TABLET PO SCH (09:02)
[2017-08-10] MEDS: LEVETIRACETAM 500 MG TABLET PO SCH ×2 (09:02→21:22)
[2017-08-10] MEDS: SENNA/DOCUSATE TABLET PO SCH (09:02)
[2017-08-10] MEDS: CHOLECALCIFEROL 1,000 UNIT TABLET PO SCH (09:03)
[2017-08-10] MEDS: CYANOCOBALAMIN 1,000 MCG TABLET PO SCH (09:03)
[2017-08-10] MEDS ORDERED: NALOXONE 0.4 MG/ML, 1ML IVPush ONE (10:00)
[2017-08-10 13:29] VITALS: BP 101/60
[2017-08-10] MEDS: SODIUM CHLORIDE 0.9% 1,000 ML IV SCH (14:00)
[2017-08-10] MEDS ORDERED: SODIUM CHLORIDE 0.9% 1,000 ML IV SCH (14:30)
[2017-08-10 19:38] VITALS: BP 96/58
[2017-08-10] MEDS: LATANOPROST OPHTH 0.005%, 2.5ML EACHEYE SCH (21:00)
[2017-08-10] MEDS: ATORVASTATIN 20 MG TABLET PO SCH (21:22)
[2017-08-10] MEDS: MIRTAZAPINE 15 MG TABLET PO SCH (21:22)
[2017-08-10] MEDS: DIVALPROEX 500 MG TAB.ER.24H PO SCH (21:22)
[2017-08-11] MEDS: SODIUM CHLORIDE 0.9% 1,000 ML IV SCH ×2 (00:51→15:53)
[2017-08-11 01:22] VITALS: BP 114/70
[2017-08-11] MEDS: ALBUTEROL SULFATE 2.5 MG/3 ML NPPB SCH ×4 (06:00→18:38)
[2017-08-11 07:24] VITALS: BP 123/71
[2017-08-11 08:20] LABS: ASPARTATE AMINO TRANSFERASE 10 U/L (15-37); BLOOD UREA NITROGEN 32 mg/dL (7-18)
[2017-08-11 08:26] LABS: HEMOGLOBIN 11.1 g/dL (13.7-18.0); WHITE BLOOD COUNT 5.4 x10^3/uL (3.4-10)
[2017-08-11] MEDS: TEMPLATE NON-FORMULARY MED. (Timolol Maleate 1 DROP) OP SCH (09:00)
[2017-08-11] MEDS: DORZOLAMIDE HCL 2% OP SCH ×2 (09:00→21:00)
[2017-08-11] MEDS: TIOTROPIUM BROMIDE 2.5 MCG INH SCH (09:00)
[2017-08-11] MEDS: SENNA/DOCUSATE TABLET PO SCH (09:00)
[2017-08-11] MEDS: LEVETIRACETAM 500 MG TABLET PO SCH ×2 (10:35→21:30)
[2017-08-11] MEDS: GABAPENTIN 300 MG CAPSULE PO SCH ×2 (10:35→21:31)
[2017-08-11] MEDS: OMEPRAZOLE 20 MG CAPSULE.DR PO SCH (10:35)
[2017-08-11] MEDS: CITALOPRAM 10 MG TABLET PO SCH (10:36)
[2017-08-11] MEDS: ASPIRIN 325 MG TABLET EC PO SCH (10:36)
[2017-08-11] MEDS: CYANOCOBALAMIN 1,000 MCG TABLET PO SCH (10:36)
[2017-08-11] MEDS: MAGNESIUM OXIDE 400 MG TABLET PO SCH (10:36)
[2017-08-11] MEDS: CHOLECALCIFEROL 1,000 UNIT TABLET PO SCH (10:37)
[2017-08-11 11:21] VITALS: BP 102/65
[2017-08-11 13:29] VITALS: BP 148/74
[2017-08-11 18:52] VITALS: BP 145/72
[2017-08-11] MEDS: ATORVASTATIN 20 MG TABLET PO SCH (21:00)
[2017-08-11] MEDS: LATANOPROST OPHTH 0.005%, 2.5ML EACHEYE SCH (21:00)
[2017-08-11] MEDS: DIVALPROEX 500 MG TAB.ER.24H PO SCH (21:30)
[2017-08-11] MEDS: MIRTAZAPINE 15 MG TABLET PO SCH (21:31)
[2017-08-12] MEDS: SODIUM CHLORIDE 0.9% 1,000 ML IV SCH ×2 (01:08→11:58)
[2017-08-12 02:05] VITALS: BP 167/80
[2017-08-12 03:00] VITALS: BP 146/74
[2017-08-12] MEDS: ALBUTEROL SULFATE 2.5 MG/3 ML NPPB SCH (06:00)
[2017-08-12] MEDS ORDERED: ASPIRIN 81 MG TABLET EC PO SCH (06:00)
[2017-08-12 06:19] VITALS: BP 170/74
[2017-08-12] MEDS ORDERED: ALBUTEROL SULFATE 2.5 MG/3 ML NPPB PRN (08:00)
[2017-08-12] MEDS: GABAPENTIN 300 MG CAPSULE PO SCH (08:56)
[2017-08-12] MEDS: MAGNESIUM OXIDE 400 MG TABLET PO SCH (08:57)
[2017-08-12] MEDS: CYANOCOBALAMIN 1,000 MCG TABLET PO SCH (08:57)
[2017-08-12] MEDS: SENNA/DOCUSATE TABLET PO SCH (08:57)
[2017-08-12] MEDS: CITALOPRAM 10 MG TABLET PO SCH (08:57)
[2017-08-12] MEDS: OMEPRAZOLE 20 MG CAPSULE.DR PO SCH (08:58)
[2017-08-12] MEDS: LEVETIRACETAM 500 MG TABLET PO SCH (08:58)
[2017-08-12] MEDS: TEMPLATE NON-FORMULARY MED. (Timolol Maleate 1 DROP) OP SCH (08:59)
[2017-08-12] MEDS: TIOTROPIUM BROMIDE 2.5 MCG INH SCH (08:59)
[2017-08-12] MEDS: DORZOLAMIDE HCL 2% OP SCH (08:59)
[2017-08-12] MEDS: CHOLECALCIFEROL 1,000 UNIT TABLET PO SCH (08:59)
[2017-08-12 10:51] LABS: BLOOD UREA NITROGEN 23 mg/dL (7-18)
[2017-08-12 10:54] LABS: ASPARTATE AMINO TRANSFERASE 15 U/L (15-37)
[2017-08-12] MEDS ORDERED: METO25TA35 PO (11:54)
[2017-08-12] MEDS ORDERED: ISOS30TA8 PO (11:54)
[2017-08-12] MEDS ORDERED: NALOXONE 0.4 MG/ML, 1ML IVPush ONE (12:00)
== END 2017-08-12 16:13 | disposition home health service (06) | DRG 682 ==
LOC: ED 23:00 → EDIP 23:46 → 5SO 08-09 00:55
PROVIDERS: ADMIT Internal Medicine; ATTEND Internal Medicine
DX: N17.0 Acute kidney failure with tubular necrosis (principal); J96.00 Acute respiratory failure, unspecified whether with hypoxia or hypercapnia; E87.2 Acidosis; E44.0 Moderate protein-calorie malnutrition; I25.119 Atherosclerotic heart disease of native coronary artery with unspecified angina pectoris; E78.5 Hyperlipidemia, unspecified; E86.9 Volume depletion, unspecified; E87.5 Hyperkalemia; F32.9 Major depressive disorder, single episode, unspecified; G62.9 Polyneuropathy, unspecified; I51.7 Cardiomegaly; I73.9 Peripheral vascular disease, unspecified; J44.9 Chronic obstructive pulmonary disease, unspecified; M10.9 Gout, unspecified; N18.3 Chronic kidney disease, stage 3 (moderate); Z79.82 Long term (current) use of aspirin; Z86.73 Personal history of transient ischemic attack (TIA), and cerebral infarction without residual deficits; Z87.891 Personal history of nicotine dependence; Z99.81 Dependence on supplemental oxygen; I12.9 Hypertensive chronic kidney disease with stage 1 through stage 4 chronic kidney disease, or unspecified chronic kidney disease; Z88.8 Allergy status to other drugs, medicaments and biological substances; G40.909 Epilepsy, unspecified, not intractable, without status epilepticus
CPT/HCPCS: 36415; 71010; 76770; 80048; 80053; 80061; 81003; 82140; 83036; 83735; 83880; 84439; 84443; 84484; 85025; 93005; 94640; 96374; 96375; 96376; J2310; J2405; J7613; J2270; J7030

== ENCOUNTER 2017-08-15 19:26 | Inpatient (IN) | payer MEDICARE ==
[~2017-08-15] VITALS: Ht 167.6 cm; Wt 86.5 kg
[~2017-08-15 19:26] MED LIST changes: +ISOS30TA8 PO; +METO25TA35 PO
[2017-08-15] MEDS ORDERED: morphine SULFATE 10 MG/ML, 1ML ONE ×2 (19:52→21:02)
[2017-08-15 19:54] LABS: HEMATOCRIT 34.2 % (39.2-51.8); HEMOGLOBIN 11.5 g/dL (13.7-18.0); WHITE BLOOD COUNT 3.7 x10^3/uL (3.4-10)
[2017-08-15] MEDS: MORPHINE SULFATE 4 MG/ML, 1ML IVPush PRN ×2 (19:59→21:06)
[2017-08-15] MEDS ORDERED: SODIUM CHLORIDE FLUSH 10ML SYR IVF ONE (20:00)
[2017-08-15 20:06] LABS: ASPARTATE AMINO TRANSFERASE 9 U/L (15-37); BLOOD UREA NITROGEN 21 mg/dL (7-18)
[2017-08-15 20:52] LABS: IS PT STATUS REG ER OR PRE ER? YES
[2017-08-15] MEDS: LATANOPROST OPHTH 0.005%, 2.5ML EACHEYE SCH (21:30)
[2017-08-15] MEDS: ATORVASTATIN 20 MG TABLET PO SCH (21:30)
[2017-08-15] MEDS ORDERED: LABETALOL 5MG/ML, 20ML IVPush PRN (21:30)
[2017-08-15] MEDS: DORZOLAMIDE OPHTH 2%, 10ML OP SCH (21:30)
[2017-08-15] MEDS ORDERED: DOCUSATE 100 MG CAPSULE PO PRN (21:30)
[2017-08-15] MEDS ORDERED: ONDANSETRON 2MG/ML, 2ML IVPush PRN (21:30)
[2017-08-15 22:20] VITALS: BP 188/80
[2017-08-15] MEDS ORDERED: ISOSORBIDE MONONITRATE ER 30 MG TABLET PO ONE (23:00)
[2017-08-15] MEDS ORDERED: IPRATROPIUM 0.5 MG/2.5 ML INHA ONE (23:09)
[2017-08-15] MEDS: DIVALPROEX 500 MG TAB.ER.24H PO SCH (23:30)
[2017-08-15] MEDS: MIRTAZAPINE 15 MG TABLET PO SCH (23:30)
[2017-08-15] MEDS: LEVETIRACETAM 500 MG TABLET PO SCH (23:30)
[2017-08-15] MEDS: GABAPENTIN 300 MG CAPSULE PO SCH (23:31)
[2017-08-15] MEDS: METOPROLOL TARTRATE 25 MG TABLET PO SCH (23:32)
[2017-08-16] VITALS (7 sets, daily range): BP systolic 86–128; BP diastolic 52–68
[2017-08-16] MEDS: morphine SULFATE 10 MG/ML, 1ML IVPush PRN ×2 (02:50→06:48)
[2017-08-16 03:00] LABS: BLOOD UREA NITROGEN 23 mg/dL (7-18)
[2017-08-16 03:08] LABS: IS PT STATUS REG ER OR PRE ER? NO
[2017-08-16] MEDS ORDERED: IPRATROPIUM 0.5 MG/2.5 ML INHA NPPB SCH ×2 (07:00→09:00)
[2017-08-16] MEDS: ALBUTEROL/IPRATROPIUM 2.5MG/0.5MG, 3 ML NPPB SCH ×4 (07:20→20:50)
[2017-08-16 08:22] LABS: IS PT STATUS REG ER OR PRE ER? NO
[2017-08-16] MEDS: TIMOLOL MALEATE 0.5% OP SCH (08:42)
[2017-08-16] MEDS ORDERED: AMLODIPINE 5 MG TABLET PO SCH (09:00)
[2017-08-16] MEDS: LEVETIRACETAM 500 MG TABLET PO SCH ×2 (09:16→20:42)
[2017-08-16] MEDS: CITALOPRAM 10 MG TABLET PO SCH (09:17)
[2017-08-16] MEDS: CYANOCOBALAMIN 1,000 MCG TABLET PO SCH (09:18)
[2017-08-16] MEDS: METOPROLOL TARTRATE 25 MG TABLET PO SCH ×2 (09:20→20:43)
[2017-08-16] MEDS: MAGNESIUM OXIDE 400 MG TABLET PO SCH (09:22)
[2017-08-16] MEDS: GABAPENTIN 300 MG CAPSULE PO SCH ×2 (09:22→20:42)
[2017-08-16] MEDS: OMEPRAZOLE 20 MG CAPSULE.DR PO SCH (09:22)
[2017-08-16] MEDS: ASPIRIN 81 MG TABLET EC PO SCH (09:22)
[2017-08-16] MEDS: ISOSORBIDE MONONITRATE ER 30 MG TABLET PO SCH (09:22)
[2017-08-16] MEDS: CHOLECALCIFEROL 1,000 UNIT TABLET PO SCH (09:22)
[2017-08-16] MEDS: DORZOLAMIDE OPHTH 2%, 10ML OP SCH ×2 (09:23→20:43)
[2017-08-16] MEDS ORDERED: ACETAMINOPHEN 325 MG TABLET PO PRN (12:00)
[2017-08-16] MEDS ORDERED: SODIUM CHLORIDE 0.9%, 500ML IVBOLUS ONE ×2 (12:00→14:30)
[2017-08-16] MEDS ORDERED: SODIUM CHLORIDE 0.9% 1,000 ML IV SCH (12:00)
[2017-08-16] MEDS: DIVALPROEX 500 MG TAB.ER.24H PO SCH (20:42)
[2017-08-16] MEDS: MIRTAZAPINE 15 MG TABLET PO SCH (20:42)
[2017-08-16] MEDS: LATANOPROST OPHTH 0.005%, 2.5ML EACHEYE SCH (20:43)
[2017-08-16] MEDS: ATORVASTATIN 20 MG TABLET PO SCH (20:43)
[2017-08-16 22:34] LABS: BLOOD UREA NITROGEN 29 mg/dL (7-18)
[2017-08-17] VITALS (7 sets, daily range): BP systolic 101–153; BP diastolic 55–77
[2017-08-17 06:28] LABS: HEMATOCRIT 28.5 % (39.2-51.8); HEMOGLOBIN 9.4 g/dL (13.7-18.0); WHITE BLOOD COUNT 5.3 x10^3/uL (3.4-10)
[2017-08-17 06:33] LABS: BLOOD UREA NITROGEN 24 mg/dL (7-18)
[2017-08-17] MEDS: ALBUTEROL/IPRATROPIUM 2.5MG/0.5MG, 3 ML NPPB SCH ×4 (06:57→18:38)
[2017-08-17] MEDS: TIMOLOL MALEATE 0.5% OP SCH (08:29)
[2017-08-17] MEDS: LEVETIRACETAM 500 MG TABLET PO SCH ×2 (08:39→20:52)
[2017-08-17] MEDS: CITALOPRAM 10 MG TABLET PO SCH (08:39)
[2017-08-17] MEDS: GABAPENTIN 300 MG CAPSULE PO SCH ×2 (08:40→20:52)
[2017-08-17] MEDS: CYANOCOBALAMIN 1,000 MCG TABLET PO SCH (08:40)
[2017-08-17] MEDS: METOPROLOL TARTRATE 25 MG TABLET PO SCH ×2 (08:40→20:54)
[2017-08-17] MEDS: ISOSORBIDE MONONITRATE ER 30 MG TABLET PO SCH (08:40)
[2017-08-17] MEDS: ASPIRIN 81 MG TABLET EC PO SCH (08:40)
[2017-08-17] MEDS: MAGNESIUM OXIDE 400 MG TABLET PO SCH (08:40)
[2017-08-17] MEDS: CHOLECALCIFEROL 1,000 UNIT TABLET PO SCH (08:40)
[2017-08-17] MEDS: OMEPRAZOLE 20 MG CAPSULE.DR PO SCH (08:40)
[2017-08-17] MEDS: DORZOLAMIDE OPHTH 2%, 10ML OP SCH ×2 (08:41→20:53)
[2017-08-17] MEDS ORDERED: CEFTRIAXONE PMX 1GM/50ML 50 ML IV SCH (09:00)
[2017-08-17] MEDS: DOXYCYCLINE 100MG TABLET PO SCH ×2 (11:43→20:53)
[2017-08-17] MEDS ORDERED: SODIUM CHLORIDE 0.9% 1,000 ML IV SCH (12:00)
[2017-08-17 12:40] LABS: ABG COLLECTION SITE RIGHT RADIAL; COLLATERAL CIRCULATION TESTING NORMAL
[2017-08-17] MEDS ORDERED: LORazepam 2 MG/ML, 1ML ONE (18:09)
[2017-08-17] MEDS ORDERED: LORazepam 2 MG/ML, 1ML IVPush PRN (18:30)
[2017-08-17] MEDS ORDERED: LORazepam 2 MG/ML, 1ML IVPush ONE (18:30)
[2017-08-17] MEDS: MIRTAZAPINE 15 MG TABLET PO SCH (20:53)
[2017-08-17] MEDS: ATORVASTATIN 20 MG TABLET PO SCH (20:53)
[2017-08-17] MEDS: DIVALPROEX 500 MG TAB.ER.24H PO SCH (20:53)
[2017-08-17] MEDS: LATANOPROST OPHTH 0.005%, 2.5ML EACHEYE SCH (20:54)
[2017-08-18 04:30] VITALS: BP 131/76
[2017-08-18 05:42] LABS: HEMATOCRIT 28.4 % (39.2-51.8); HEMOGLOBIN 9.1 g/dL (13.7-18.0); WHITE BLOOD COUNT 8.1 x10^3/uL (3.4-10)
[2017-08-18 05:55] LABS: ASPARTATE AMINO TRANSFERASE 6 U/L (15-37); BLOOD UREA NITROGEN 20 mg/dL (7-18)
[2017-08-18] MEDS: ALBUTEROL/IPRATROPIUM 2.5MG/0.5MG, 3 ML NPPB SCH ×4 (06:51→18:57)
[2017-08-18] MEDS ORDERED: VANCOMYCIN PER PHARMACY MC PRN (07:30)
[2017-08-18] MEDS: ASPIRIN 81 MG TABLET EC PO SCH (07:51)
[2017-08-18] MEDS: METOPROLOL TARTRATE 25 MG TABLET PO SCH ×2 (07:52→21:46)
[2017-08-18] MEDS: MAGNESIUM OXIDE 400 MG TABLET PO SCH (07:52)
[2017-08-18] MEDS: CITALOPRAM 10 MG TABLET PO SCH (07:52)
[2017-08-18] MEDS: ISOSORBIDE MONONITRATE ER 30 MG TABLET PO SCH (07:52)
[2017-08-18] MEDS: GABAPENTIN 300 MG CAPSULE PO SCH ×2 (07:52→21:45)
[2017-08-18] MEDS: CYANOCOBALAMIN 1,000 MCG TABLET PO SCH (07:53)
[2017-08-18] MEDS: TIMOLOL MALEATE 0.5% OP SCH (07:53)
[2017-08-18] MEDS: CHOLECALCIFEROL 1,000 UNIT TABLET PO SCH (07:53)
[2017-08-18] MEDS: OMEPRAZOLE 20 MG CAPSULE.DR PO SCH (07:53)
[2017-08-18] MEDS: LEVETIRACETAM 500 MG TABLET PO SCH ×2 (07:57→21:45)
[2017-08-18] MEDS: DORZOLAMIDE OPHTH 2%, 10ML OP SCH ×2 (07:57→21:47)
[2017-08-18] MEDS: SODIUM CHLORIDE 0.9% 1,000 ML IV SCH ×2 (07:57→23:04)
[2017-08-18 07:59] VITALS: BP 135/65
[2017-08-18] MEDS ORDERED: PHARMACOKINETIC MONITORING MC PRN (08:00)
[2017-08-18] MEDS ORDERED: VANCOMYCIN 1,600 MG in SODIUM CHLORIDE 0.9% 250 ML IV ONE (08:00)
[2017-08-18] MEDS ORDERED: LORazepam 2 MG/ML, 1ML IVPush PRN (10:30)
[2017-08-18 13:56] VITALS: BP 146/69
[2017-08-18] MEDS ORDERED: KETOROLAC 30 MG/1 ML IVPush ONE (16:45)
[2017-08-18 20:09] VITALS: BP 122/63
[2017-08-18] MEDS: MIRTAZAPINE 15 MG TABLET PO SCH (21:00)
[2017-08-18] MEDS: LATANOPROST OPHTH 0.005%, 2.5ML EACHEYE SCH (21:00)
[2017-08-18] MEDS: ATORVASTATIN 20 MG TABLET PO SCH (21:45)
[2017-08-18] MEDS: DIVALPROEX 500 MG TAB.ER.24H PO SCH (21:45)
[2017-08-19 01:21] VITALS: BP 126/70
[2017-08-19] MEDS: ALBUTEROL/IPRATROPIUM 2.5MG/0.5MG, 3 ML NPPB SCH ×4 (07:13→19:46)
[2017-08-19 08:30] VITALS: BP 145/71
[2017-08-19] MEDS: METOPROLOL TARTRATE 25 MG TABLET PO SCH ×2 (08:57→20:57)
[2017-08-19] MEDS: CITALOPRAM 10 MG TABLET PO SCH (08:58)
[2017-08-19] MEDS: LEVETIRACETAM 500 MG TABLET PO SCH ×2 (08:58→20:57)
[2017-08-19] MEDS: CYANOCOBALAMIN 1,000 MCG TABLET PO SCH (08:59)
[2017-08-19] MEDS: OMEPRAZOLE 20 MG CAPSULE.DR PO SCH (09:00)
[2017-08-19] MEDS: GABAPENTIN 300 MG CAPSULE PO SCH ×2 (09:00→20:57)
[2017-08-19] MEDS: TIMOLOL MALEATE 0.5% OP SCH (09:00)
[2017-08-19] MEDS: MAGNESIUM OXIDE 400 MG TABLET PO SCH (09:01)
[2017-08-19] MEDS: ASPIRIN 81 MG TABLET EC PO SCH (09:01)
[2017-08-19] MEDS: DORZOLAMIDE OPHTH 2%, 10ML OP SCH ×2 (09:02→20:56)
[2017-08-19] MEDS: ISOSORBIDE MONONITRATE ER 30 MG TABLET PO SCH (09:02)
[2017-08-19] MEDS: CHOLECALCIFEROL 1,000 UNIT TABLET PO SCH (09:02)
[2017-08-19 12:27] LABS: BLOOD UREA NITROGEN 19 mg/dL (7-18)
[2017-08-19 14:00] VITALS: BP 157/71
[2017-08-19] MEDS ORDERED: BISACODYL 10 MG SUPP PR PRN (14:00)
[2017-08-19] MEDS ORDERED: MAGNESIUM HYDROXIDE 8%, 30ML UDC PO PRN (14:00)
[2017-08-19] MEDS ORDERED: OXYcodone/APAP 5/325MG TABLET PO PRN (14:00)
[2017-08-19] MEDS ORDERED: VANCOMYCIN 1,500 MG in SODIUM CHLORIDE 0.9% 250 ML IV ONE (17:00)
[2017-08-19 18:54] VITALS: BP 157/71
[2017-08-19] MEDS: LATANOPROST OPHTH 0.005%, 2.5ML EACHEYE SCH (20:56)
[2017-08-19] MEDS: DIVALPROEX 500 MG TAB.ER.24H PO SCH (20:57)
[2017-08-19] MEDS: MIRTAZAPINE 15 MG TABLET PO SCH (20:57)
[2017-08-19] MEDS: ATORVASTATIN 20 MG TABLET PO SCH (20:57)
[2017-08-20 00:28] VITALS: BP 136/70
[2017-08-20 05:47] LABS: HEMATOCRIT 29.1 % (39.2-51.8); HEMOGLOBIN 9.8 g/dL (13.7-18.0); WHITE BLOOD COUNT 4.1 x10^3/uL (3.4-10)
[2017-08-20 05:53] LABS: BLOOD UREA NITROGEN 20 mg/dL (7-18)
[2017-08-20] MEDS: ALBUTEROL/IPRATROPIUM 2.5MG/0.5MG, 3 ML NPPB SCH ×2 (07:30→11:00)
[2017-08-20 07:49] VITALS: BP 149/66
[2017-08-20] MEDS: GABAPENTIN 300 MG CAPSULE PO SCH (08:55)
[2017-08-20] MEDS: CITALOPRAM 10 MG TABLET PO SCH (08:59)
[2017-08-20] MEDS: LEVETIRACETAM 500 MG TABLET PO SCH (08:59)
[2017-08-20] MEDS: ASPIRIN 81 MG TABLET EC PO SCH (08:59)
[2017-08-20] MEDS: OMEPRAZOLE 20 MG CAPSULE.DR PO SCH (09:00)
[2017-08-20] MEDS: CYANOCOBALAMIN 1,000 MCG TABLET PO SCH (09:00)
[2017-08-20] MEDS: CHOLECALCIFEROL 1,000 UNIT TABLET PO SCH (09:00)
[2017-08-20] MEDS: METOPROLOL TARTRATE 25 MG TABLET PO SCH (09:01)
[2017-08-20] MEDS: ISOSORBIDE MONONITRATE ER 30 MG TABLET PO SCH (09:01)
[2017-08-20] MEDS: MAGNESIUM OXIDE 400 MG TABLET PO SCH (09:02)
[2017-08-20] MEDS: TIMOLOL MALEATE 0.5% OP SCH (09:02)
[2017-08-20] MEDS: DORZOLAMIDE OPHTH 2%, 10ML OP SCH (09:02)
[2017-08-20] MEDS ORDERED: DOXY100T10 PO (15:21)
[2017-08-20 16:11] VITALS: BP 154/85
== END 2017-08-20 16:35 | disposition home or self-care (01) | DRG 177 ==
LOC: ED 20:38 → INTOOBSV 20:53 → EDIP 20:53 → 5SO 22:09 → OBSVTOIN 08-17 09:05 → 4NOR 08-18 13:49 → DCLOUNGE 08-20 16:10
PROVIDERS: ADMIT Family Medicine; ATTEND Internal Medicine
PROC: 0T9B70Z Drainage of Bladder with Drainage Device, Via Natural or Artificial Opening (ICD-10-PCS; principal; 2017-08-17)
DX: J69.0 Pneumonitis due to inhalation of food and vomit (principal); E43 Unspecified severe protein-calorie malnutrition; N17.9 Acute kidney failure, unspecified; I25.110 Atherosclerotic heart disease of native coronary artery with unstable angina pectoris; G40.509 Epileptic seizures related to external causes, not intractable, without status epilepticus; F33.0 Major depressive disorder, recurrent, mild; I13.10 Hypertensive heart and chronic kidney disease without heart failure, with stage 1 through stage 4 chronic kidney disease, or unspecified chronic kidney disease; N18.3 Chronic kidney disease, stage 3 (moderate); E78.5 Hyperlipidemia, unspecified; I73.9 Peripheral vascular disease, unspecified; J44.9 Chronic obstructive pulmonary disease, unspecified; M10.9 Gout, unspecified; I25.2 Old myocardial infarction; Z99.81 Dependence on supplemental oxygen; Z82.49 Family history of ischemic heart disease and other diseases of the circulatory system; Z86.73 Personal history of transient ischemic attack (TIA), and cerebral infarction without residual deficits; Z87.891 Personal history of nicotine dependence; Z88.8 Allergy status to other drugs, medicaments and biological substances; Z68.30 Body mass index [BMI] 30.0-30.9, adult; Z88.1 Allergy status to other antibiotic agents; Z88.3 Allergy status to other anti-infective agents
CPT/HCPCS: 36415; 36600; 71010; 80048; 80053; 80164; 80202; 81003; 82040; 82803; 83735; 83880; 84145; 84484; 85025; 85610; 85730; 87040; 93005; 94640; G0378; J0696; J1885; J3370; J7620; J7644; J2060; J2270; J7030; J7040; J7050

== ENCOUNTER 2018-03-15 14:40 | Inpatient (IN) | payer MEDICARE, OTHER ==
[~2018-03-15] VITALS: Ht 167.6 cm; Wt 85.9 kg
[~2018-03-15 14:40] MED LIST changes: +DOXY100T10 PO
[2018-03-15] MEDS ORDERED: SODIUM CHLORIDE FLUSH 10ML SYR IVF ONE (15:00)
[2018-03-15] MEDS ORDERED: DIAZEPAM 5 MG/ML, 2ML IVPush PRN (15:00)
[2018-03-15] MEDS ORDERED: AMOX1TAB64 PO (15:18)
[2018-03-15] MEDS ORDERED: CHOL200021 PO (15:18)
[2018-03-15] MEDS ORDERED: CITA10TA4 PO (15:18)
[2018-03-15] MEDS ORDERED: FURO20TA3 PO (15:18)
[2018-03-15] MEDS ORDERED: SODI650T PO (15:18)
[2018-03-15] MEDS ORDERED: DORZ10DR26 EACHEYE (15:18)
[2018-03-15] MEDS ORDERED: METO25TA35 PO (15:18)
[2018-03-15 15:21] LABS: BASOPHILS # (AUTO) 0.02 x10^3/uL (0-0.1); BASOPHILS % (AUTO) 0 % (0-1); EOSINOPHILS # (AUTO) 0.12 x10^3/uL (0-0.4); EOSINOPHILS % (AUTO) 2 % (1-7); LYMPHOCYTES # (AUTO) 1.72 x10^3/uL (1-3.4); LYMPHOCYTES % (AUTO) 31 % (22-44); MD NO; MEAN CORPUSCULAR HEMOGLOBIN 29.3 pg (27.5-34.5); MEAN CORPUSCULAR HGB CONC 32.9 g/dL (33.2-36.2); MEAN CORPUSCULAR VOLUME 89.3 fL (81-97); MEAN PLATELET VOLUME 8.9 fL (7.4-10.4); MONOCYTES % (AUTO) 7 % (2-9); NEUTROPHILS # (AUTO) 3.28 x10^3/uL (1.8-6.8); NEUTROPHILS % (AUTO) 59 % (42-75); PLATELET COUNT 108 x10^3/uL (130-400); RED BLOOD COUNT 4.08 x10^6/uL (4.38-5.82); RED CELL DISTRIBUTION WIDTH 16.7 % (9.4-14.8)
[2018-03-15 15:32] LABS: ALBUMIN 3.4 g/dL (3.4-5.0); ANION GAP 13 mmol/L (5-15); CALCIUM 9.1 mg/dL (8.5-10.1); CHLORIDE 104 mmol/L (98-107)
[2018-03-15 15:38] LABS: ALANINE AMINOTRANSFERASE 17 U/L (12-78); ALKALINE PHOSPHATASE 65 U/L (45-117); BILIRUBIN,TOTAL 0.6 mg/dL (0.2-1.0); CREATININE 2.15 mg/dL (0.7-1.3); TOTAL PROTEIN 7.7 g/dL (6.4-8.2)
[2018-03-15 15:40] LABS: TROPONIN I 0.867 ng/mL (0.000-0.045)
[2018-03-15] MEDS ORDERED: MORPHINE SULFATE 4 MG/ML, 1ML ONE (16:20)
[2018-03-15] MEDS ORDERED: ONDANSETRON ODT 4 MG ONE (16:20)
[2018-03-15] MEDS ORDERED: DIPHENHYDRAMINE 50 MG/ML, 1ML ONE (16:41)
[2018-03-15] MEDS ORDERED: DIPHENHYDRAMINE 50 MG/ML, 1ML IVPush ONE (17:00)
[2018-03-15] MEDS ORDERED: ONDANSETRON 2MG/ML, 2ML IVPush PRN (18:00)
[2018-03-15] MEDS ORDERED: ACETAMINOPHEN 325 MG TABLET PO PRN (18:00)
[2018-03-15] MEDS ORDERED: ACETAMINOPHEN 325 MG TABLET ONE (19:25)
[2018-03-15 21:12] LABS: MICROSCOPIC NOT IND
[2018-03-15] MEDS ORDERED: IPRATROPIUM 0.5 MG/2.5 ML INHA NPPB SCH (21:30)
[2018-03-15 21:40] LABS: CULTURE INDICATED? NO
[2018-03-15] MEDS: MIRTAZAPINE 15 MG TABLET PO SCH (21:50)
[2018-03-15] MEDS: LEVETIRACETAM 500 MG TABLET PO SCH (21:50)
[2018-03-15] MEDS: SODIUM CHLORIDE FLUSH 10ML SYR IVF SCH (21:50)
[2018-03-15] MEDS ORDERED: DEXTROSE 50%, 50ML SYRINGE ONE (22:19)
[2018-03-15] MEDS ORDERED: KETOROLAC 30 MG/1 ML ONE (22:40)
[2018-03-15] MEDS ORDERED: NITROGLYCERIN 0.4 MG BOTTLE (25 TABS) SL ONE (22:40)
[2018-03-15] MEDS: LATANOPROST OPHTH 0.005%, 2.5ML EACHEYE SCH (22:51)
[2018-03-15] MEDS: DIVALPROEX 500 MG TAB.ER.24H PO SCH (22:51)
[2018-03-15] MEDS: NITROGLYCERIN 0.4 MG BOTTLE (25 TABS) SL PRN (22:57)
[2018-03-15 22:58] VITALS: BP 136/72
[2018-03-15] MEDS ORDERED: KETOROLAC 30 MG/1 ML IVPush SCH (23:00)
[2018-03-16 02:38] VITALS: BP 170/79
[2018-03-16 04:13] VITALS: BP 159/78
[2018-03-16 05:12] LABS: MEAN CORPUSCULAR HEMOGLOBIN 29.3 pg (27.5-34.5); MEAN CORPUSCULAR HGB CONC 32.5 g/dL (33.2-36.2); MEAN CORPUSCULAR VOLUME 90.1 fL (81-97); PLATELET COUNT 96 x10^3/uL (130-400); RED BLOOD COUNT 3.66 x10^6/uL (4.38-5.82); RED CELL DISTRIBUTION WIDTH 16.8 % (9.4-14.8)
[2018-03-16 05:21] LABS: ANION GAP 6 mmol/L (5-15); CALCIUM 9.1 mg/dL (8.5-10.1); CHLORIDE 106 mmol/L (98-107)
[2018-03-16 05:24] LABS: TROPONIN I 0.697 ng/mL (0.000-0.045)
[2018-03-16 05:26] LABS: ALANINE AMINOTRANSFERASE 14 U/L (12-78); ALKALINE PHOSPHATASE 57 U/L (45-117); BILIRUBIN,TOTAL 0.4 mg/dL (0.2-1.0); CREATININE 2.58 mg/dL (0.7-1.3); TOTAL PROTEIN 6.8 g/dL (6.4-8.2)
[2018-03-16 05:56] LABS: BASOPHILS # (AUTO) 0.02 x10^3/uL (0-0.1); BASOPHILS % (AUTO) 1 % (0-1); EOSINOPHILS # (AUTO) 0.12 x10^3/uL (0-0.4); EOSINOPHILS % (AUTO) 3 % (1-7); LYMPHOCYTES # (AUTO) 1.78 x10^3/uL (1-3.4); LYMPHOCYTES % (AUTO) 42 % (22-44); MD SCAN; MONOCYTES # (AUTO) 0.37 x10^3/uL (0.2-0.8); MONOCYTES % (AUTO) 9 % (2-9); NEUTROPHILS % (AUTO) 47 % (42-75)
[2018-03-16 07:20] VITALS: BP 150/71
[2018-03-16] MEDS: SODIUM CHLORIDE FLUSH 10ML SYR IVF SCH ×2 (08:48→20:48)
[2018-03-16] MEDS: CYANOCOBALAMIN 1,000 MCG TABLET PO SCH (08:49)
[2018-03-16] MEDS: MAGNESIUM OXIDE 400 MG TABLET PO SCH (08:49)
[2018-03-16] MEDS: ASPIRIN 81 MG TABLET EC PO SCH (08:49)
[2018-03-16] MEDS: SODIUM BICARBONATE 650 MG TABLET PO SCH (08:49)
[2018-03-16] MEDS: FUROSEMIDE 40 MG TABLET PO SCH (08:49)
[2018-03-16] MEDS: AMLODIPINE 5 MG TABLET PO SCH (08:49)
[2018-03-16] MEDS: CITALOPRAM 10 MG TABLET PO SCH (08:49)
[2018-03-16] MEDS: CHOLECALCIFEROL 1,000 UNIT TABLET PO SCH (08:50)
[2018-03-16] MEDS: LEVETIRACETAM 500 MG TABLET PO SCH ×2 (08:50→20:47)
[2018-03-16] MEDS: ISOSORBIDE MONONITRATE ER 30 MG TABLET PO SCH (08:50)
[2018-03-16] MEDS: METOPROLOL TARTRATE 25 MG TABLET PO SCH (08:50)
[2018-03-16] MEDS ORDERED: TEMPLATE NON-FORMULARY MED. (Timolol Maleate 1 DROP) OP SCH (09:00)
[2018-03-16 13:20] VITALS: BP 152/76
[2018-03-16] MEDS ORDERED: TIMO5DRO8 EACHEYE (17:24)
[2018-03-16] MEDS: MIRTAZAPINE 15 MG TABLET PO SCH (20:48)
[2018-03-16] MEDS: DIVALPROEX 500 MG TAB.ER.24H PO SCH (20:48)
[2018-03-16] MEDS: LATANOPROST OPHTH 0.005%, 2.5ML EACHEYE SCH (20:48)
[2018-03-16 20:50] VITALS: BP 130/69
[2018-03-16] MEDS: NITROGLYCERIN 0.4 MG BOTTLE (25 TABS) SL PRN (22:20)
[2018-03-16 22:23] VITALS: BP 176/81
[2018-03-17] MEDS ORDERED: ENALAPRIL 2.5MG TABLET PO PRN (01:30)
[2018-03-17 03:17] VITALS: BP 129/72
[2018-03-17 05:29] LABS: CHLORIDE 104 mmol/L (98-107)
[2018-03-17 05:34] LABS: ANION GAP 7 mmol/L (5-15); CALCIUM 9.5 mg/dL (8.5-10.1); CREATININE 2.87 mg/dL (0.7-1.3)
[2018-03-17 07:22] VITALS: BP 148/77
[2018-03-17] MEDS ORDERED: MAALOX/HYOSCYAMINE/LIDOCAINE 45 ML BTL PO PRN (08:30)
[2018-03-17] MEDS: OMEPRAZOLE 20 MG CAPSULE.DR PO SCH (08:32)
[2018-03-17] MEDS: SODIUM CHLORIDE FLUSH 10ML SYR IVF SCH ×2 (08:33→23:11)
[2018-03-17] MEDS: CITALOPRAM 10 MG TABLET PO SCH (08:34)
[2018-03-17] MEDS: FUROSEMIDE 40 MG TABLET PO SCH (08:34)
[2018-03-17] MEDS: CYANOCOBALAMIN 1,000 MCG TABLET PO SCH (08:35)
[2018-03-17] MEDS: LEVETIRACETAM 500 MG TABLET PO SCH ×2 (08:36→23:16)
[2018-03-17] MEDS: ASPIRIN 81 MG TABLET EC PO SCH (08:36)
[2018-03-17] MEDS: AMLODIPINE 5 MG TABLET PO SCH (08:37)
[2018-03-17] MEDS: METOPROLOL TARTRATE 25 MG TABLET PO SCH (08:37)
[2018-03-17] MEDS: SODIUM BICARBONATE 650 MG TABLET PO SCH (08:37)
[2018-03-17] MEDS: CHOLECALCIFEROL 1,000 UNIT TABLET PO SCH (08:38)
[2018-03-17] MEDS: ISOSORBIDE MONONITRATE ER 30 MG TABLET PO SCH (08:38)
[2018-03-17] MEDS: MAGNESIUM OXIDE 400 MG TABLET PO SCH (08:38)
[2018-03-17] MEDS ORDERED: LORazepam 2 MG/ML, 1ML ONE (11:09)
[2018-03-17] MEDS: TIMOLOL OPHTH 0.5%, 5ML EACHEYE SCH (11:15)
[2018-03-17 11:18] VITALS: BP 157/83
[2018-03-17] MEDS ORDERED: LORazepam 2 MG/ML, 1ML IVPush PRN (11:30)
[2018-03-17 15:00] VITALS: BP_SYST 104; BP_SYST 146; BP_DIAS 68; BP_DIAS 78
[2018-03-17] MEDS: PROAIR INH SCH (21:00)
[2018-03-17 21:20] VITALS: BP 145/69
[2018-03-17] MEDS: LATANOPROST OPHTH 0.005%, 2.5ML EACHEYE SCH (23:08)
[2018-03-17] MEDS: DIVALPROEX 500 MG TAB.ER.24H PO SCH (23:15)
[2018-03-17] MEDS: MIRTAZAPINE 15 MG TABLET PO SCH (23:16)
[2018-03-18 01:30] VITALS: BP 120/62
[2018-03-18] MEDS: METOPROLOL SUCCINATE 25 MG TAB.ER.24H PO SCH (05:20)
[2018-03-18 05:21] VITALS: BP 103/62
[2018-03-18] MEDS: PROAIR INH SCH ×4 (05:21→20:44)
[2018-03-18 05:25] VITALS: BP 145/72
[2018-03-18 05:48] LABS: CHLORIDE 106 mmol/L (98-107)
[2018-03-18 05:59] LABS: ALANINE AMINOTRANSFERASE 15 U/L (12-78); ALKALINE PHOSPHATASE 53 U/L (45-117); ANION GAP 9 mmol/L (5-15); BILIRUBIN,TOTAL 0.8 mg/dL (0.2-1.0); CALCIUM 9.4 mg/dL (8.5-10.1); CREATININE 2.38 mg/dL (0.7-1.3); TOTAL PROTEIN 6.8 g/dL (6.4-8.2)
[2018-03-18 06:09] LABS: BASOPHILS # (AUTO) 0.02 x10^3/uL (0-0.1); BASOPHILS % (AUTO) 1 % (0-1); EOSINOPHILS # (AUTO) 0.23 x10^3/uL (0-0.4); EOSINOPHILS % (AUTO) 6 % (1-7); LYMPHOCYTES % (AUTO) 42 % (22-44); MD SCAN; MEAN CORPUSCULAR HEMOGLOBIN 29.9 pg (27.5-34.5); MEAN CORPUSCULAR VOLUME 90.8 fL (81-97); MEAN PLATELET VOLUME 8.6 fL (7.4-10.4); MONOCYTES # (AUTO) 0.37 x10^3/uL (0.2-0.8); MONOCYTES % (AUTO) 9 % (2-9); NEUTROPHILS # (AUTO) 1.86 x10^3/uL (1.8-6.8); NEUTROPHILS % (AUTO) 44 % (42-75); PLATELET COUNT 97 x10^3/uL (130-400); RED BLOOD COUNT 3.82 x10^6/uL (4.38-5.82); RED CELL DISTRIBUTION WIDTH 16.6 % (9.4-14.8)
[2018-03-18 06:39] VITALS: BP 137/74
[2018-03-18] MEDS: OMEPRAZOLE 20 MG CAPSULE.DR PO SCH (07:30)
[2018-03-18] MEDS ORDERED: GADOBUTROL 10 MMOL/10 ML PFS ONE (10:25)
[2018-03-18] MEDS: SODIUM BICARBONATE 650 MG TABLET PO SCH (10:56)
[2018-03-18] MEDS: ISOSORBIDE MONONITRATE ER 30 MG TABLET PO SCH (10:56)
[2018-03-18] MEDS: CHOLECALCIFEROL 1,000 UNIT TABLET PO SCH (10:56)
[2018-03-18] MEDS: CITALOPRAM 10 MG TABLET PO SCH (10:56)
[2018-03-18] MEDS: LEVETIRACETAM 500 MG TABLET PO SCH ×2 (10:56→20:43)
[2018-03-18] MEDS: MAGNESIUM OXIDE 400 MG TABLET PO SCH (10:56)
[2018-03-18] MEDS: CYANOCOBALAMIN 1,000 MCG TABLET PO SCH (10:56)
[2018-03-18] MEDS: ASPIRIN 81 MG TABLET EC PO SCH (10:56)
[2018-03-18] MEDS: AMLODIPINE 5 MG TABLET PO SCH (10:56)
[2018-03-18] MEDS: TIMOLOL OPHTH 0.5%, 5ML EACHEYE SCH (10:57)
[2018-03-18] MEDS: FUROSEMIDE 40 MG TABLET PO SCH (10:57)
[2018-03-18] MEDS: SPIRIVA RESPIMAT INH SCH (10:57)
[2018-03-18] MEDS: SODIUM CHLORIDE FLUSH 10ML SYR IVF SCH ×2 (10:59→20:42)
[2018-03-18 15:05] VITALS: BP 153/76
[2018-03-18 20:36] VITALS: BP 129/62
[2018-03-18] MEDS: DIVALPROEX 500 MG TAB.ER.24H PO SCH (20:42)
[2018-03-18] MEDS: LATANOPROST OPHTH 0.005%, 2.5ML EACHEYE SCH (20:42)
[2018-03-18] MEDS: MIRTAZAPINE 15 MG TABLET PO SCH (20:42)
[2018-03-19 01:26] VITALS: BP 128/64
[2018-03-19 05:10] VITALS: BP 137/68
[2018-03-19] MEDS: METOPROLOL SUCCINATE 25 MG TAB.ER.24H PO SCH (05:10)
[2018-03-19] MEDS: PROAIR INH SCH ×2 (05:10→11:01)
[2018-03-19 07:39] VITALS: BP 139/76
[2018-03-19] MEDS: SODIUM BICARBONATE 650 MG TABLET PO SCH (09:09)
[2018-03-19] MEDS: CITALOPRAM 10 MG TABLET PO SCH (09:09)
[2018-03-19] MEDS: AMLODIPINE 5 MG TABLET PO SCH (09:09)
[2018-03-19] MEDS: CHOLECALCIFEROL 1,000 UNIT TABLET PO SCH (09:09)
[2018-03-19] MEDS: MAGNESIUM OXIDE 400 MG TABLET PO SCH (09:09)
[2018-03-19] MEDS: ASPIRIN 81 MG TABLET EC PO SCH (09:09)
[2018-03-19] MEDS: ISOSORBIDE MONONITRATE ER 30 MG TABLET PO SCH (09:10)
[2018-03-19] MEDS: OMEPRAZOLE 20 MG CAPSULE.DR PO SCH (09:10)
[2018-03-19] MEDS: TIMOLOL OPHTH 0.5%, 5ML EACHEYE SCH (09:10)
[2018-03-19] MEDS: SPIRIVA RESPIMAT INH SCH (09:10)
[2018-03-19] MEDS: FUROSEMIDE 40 MG TABLET PO SCH (09:10)
[2018-03-19] MEDS: SODIUM CHLORIDE FLUSH 10ML SYR IVF SCH (09:10)
[2018-03-19] MEDS: LEVETIRACETAM 500 MG TABLET PO SCH (09:11)
[2018-03-19] MEDS: CYANOCOBALAMIN 1,000 MCG TABLET PO SCH (09:12)
[2018-03-19] MEDS ORDERED: GABAPENTIN 300 MG CAPSULE PO SCH (11:00)
[2018-03-19] MEDS ORDERED: ESLI400T PO (12:34)
[2018-03-19] MEDS ORDERED: TEMPLATE NON-FORMULARY MED. (Rosuvastatin Calcium** (Crestor**) 10 MG) PO SCH (21:00)
[2018-03-19] MEDS ORDERED: ATORVASTATIN 20 MG TABLET PO SCH (21:00)
== END 2018-03-19 12:55 | disposition home or self-care (01) | DRG 302 ==
LOC: ED 16:13 → EDIP 16:37 → 5SO 21:11
PROVIDERS: ADMIT Internal Medicine; ATTEND Internal Medicine
DX: I25.10 Atherosclerotic heart disease of native coronary artery without angina pectoris (principal); N17.0 Acute kidney failure with tubular necrosis; I24.8 Other forms of acute ischemic heart disease; G40.409 Other generalized epilepsy and epileptic syndromes, not intractable, without status epilepticus; J44.9 Chronic obstructive pulmonary disease, unspecified; D69.6 Thrombocytopenia, unspecified; F32.9 Major depressive disorder, single episode, unspecified; D64.9 Anemia, unspecified; E78.5 Hyperlipidemia, unspecified; N18.3 Chronic kidney disease, stage 3 (moderate); I73.9 Peripheral vascular disease, unspecified; F43.10 Post-traumatic stress disorder, unspecified; I12.9 Hypertensive chronic kidney disease with stage 1 through stage 4 chronic kidney disease, or unspecified chronic kidney disease; G62.9 Polyneuropathy, unspecified; M10.9 Gout, unspecified; Z99.81 Dependence on supplemental oxygen; Z87.01 Personal history of pneumonia (recurrent); Z88.8 Allergy status to other drugs, medicaments and biological substances; I25.2 Old myocardial infarction; Z87.891 Personal history of nicotine dependence; Z86.73 Personal history of transient ischemic attack (TIA), and cerebral infarction without residual deficits; Z82.49 Family history of ischemic heart disease and other diseases of the circulatory system; Z88.5 Allergy status to narcotic agent; Z79.899 Other long term (current) drug therapy
CPT/HCPCS: 36415; 70553; 74022; 74150; 80048; 80053; 80164; 81003; 82962; 83690; 83735; 84100; 84484; 85025; 86704; 86706; 86708; 86803; 87340; 93005; 93306; 95812; 95816; A9585; J1885; J3360; J1200; J2060